=== PATIENT | male | born 1975 | race Caucasian/White ===

== ENCOUNTER 2018-04-19 04:36 | Emergency (ER) | payer SELFPAY ==
[~2018-04-19] VITALS: Ht 170.2 cm; Wt 70.3 kg
[~2018-04-19 04:36] MED LIST: AMLODIPINE BESY10 MG PO; CIPRO500 MG PO; CLINDAMYCIN HC300 MG PO; NORCO 10-325 T1 EACH PO; SENNA-S TABLET1 EA PO; ULTRAM50 MG PO
[2018-04-19] MEDS: CLONIDINE HCL 0.1 MG TAB PO ONE ×2 (05:10→06:00)
[2018-04-19 06:17] VITALS: BP 156/98
== END 2018-04-19 06:20 | disposition home or self-care (01) ==
LOC: ER 04:36
DX: R07.89 Other chest pain (principal); I10 Essential (primary) hypertension; Z91.14 Patient's other noncompliance with medication regimen; Z89.512 Acquired absence of left leg below knee
CPT/HCPCS: 93005; 99282

== ENCOUNTER 2018-11-08 12:49 | Emergency (ER) | payer SELFPAY ==
[~2018-11-08] VITALS: Ht 170.2 cm; Wt 68.0 kg
--- OUTSIDE RECORDS SUMMARY | 2018-11-08 12:52 | XMS REPORT ---
Author Author [facility] Address Unknown Phone Unavailable Care Team Providers Care Quality Control Analyst Name Role Phone Unavailable Unavailable Problems This patient has no known problems. Allergies, Adverse Reactions, Alerts This patient has no known allergies or adverse reactions. Medications This patient has no known medications.
[2018-11-08] MEDS ORDERED: VALACYCLOVIR HCL 500 MG TAB PO ONE (13:15)
[2018-11-08] MEDS ORDERED: TRAMADOL HCL 50 MG TAB PO ONE (13:15)
[2018-11-08] MEDS ORDERED: LIDOCAINE 5% PATCH TP ONE (13:15)
[2018-11-08 13:42] VITALS: BP 147/94
== END 2018-11-08 13:44 | disposition home or self-care (01) ==
LOC: ER 12:49
DX: B02.9 Zoster without complications (principal); I10 Essential (primary) hypertension; F17.210 Nicotine dependence, cigarettes, uncomplicated
CPT/HCPCS: 99283

== ENCOUNTER 2021-05-20 16:39 | Emergency (ER) | payer SELFPAY ==
[~2021-05-20] VITALS: Ht 170.2 cm; Wt 68.0 kg
[2021-05-20] MEDS ORDERED: KETOROLAC TROMETHAMINE 60 MG/2 ML VIAL IM ONE (17:00)
[2021-05-20] MEDS ORDERED: ACETAMINOPHEN-1 EAC4 PO (18:19)
== END 2021-05-20 18:58 | disposition home or self-care (01) ==
LOC: ER 16:57
DX: M54.50 Low back pain, unspecified (principal); K57.30 Diverticulosis of large intestine without perforation or abscess without bleeding; R10.9 Unspecified abdominal pain; I10 Essential (primary) hypertension; Z89.512 Acquired absence of left leg below knee
CPT/HCPCS: 74176; 99283; J1885